=== PATIENT | male | born 1960 | race Caucasian/White ===

== ENCOUNTER → 2025-04-07 07:08 | Outpatient (REF) | payer MEDICARE, OTHER, SELFPAY | LOC: HWRCS 07:08 | PROVIDERS: ATTENDING PHYSICIAN Internal Medicine Cardiovascular Disease | DX: E78.5 Hyperlipidemia, unspecified (principal); E11.42 Type 2 diabetes mellitus with diabetic polyneuropathy; I10 Essential (primary) hypertension; E11.21 Type 2 diabetes mellitus with diabetic nephropathy; R06.09 Other forms of dyspnea | CPT/HCPCS: 78452; 93017; A9500; J2785 ==

== ENCOUNTER → 2025-04-26 09:39 | Outpatient (REF) | payer MEDICARE, OTHER, SELFPAY ==
[2025-04-26 10:44] LABS: Hematocrit 44.5 % (39.0-52.0); Hemoglobin 14.8 g/dL (13.0-18.0); Mean Corp Hgb Conc. 33.3 g/dL (33.0-37.0); Mean Corpuscular Volume 88.5 fL (80.0-94.0); Nucleated Red Blood Cells % 0 % (-); Platelet Count 213 10^3/uL (130-400); Red Cell Dist. Width 13.8 % (11.5-14.5)
[2025-04-26 11:37] LABS: Glycohemoglobin (HgbA1c) 7.5 % (4.0-5.9)
[2025-04-26 11:53] LABS: ALT (SGPT) 18 U/L (0-50); AST (SGOT) 21 U/L (17-59); Albumin 4.8 g/dl (3.5-5.0); Alkaline Phosphatase 77 U/L (38-126); Blood Urea Nitrogen 11 mg/dl (9-20); Calcium 9.7 mg/dl (8.4-10.2); Carbon Dioxide 27 mmol/L (22-30); Chloride 102 mmol/L (98-107); Glucose 169 mg/dl (70-99); HDL Cholesterol 39 mg/dl; LDL Cholesterol, Calculated 110 mg/dl; Potassium 5.0 mmol/L (3.5-5.1); Sodium 139 mmol/L (135-145); Total Protein 7.8 g/dl (6.3-8.2); Very Low Density Lipoprotein 31 mg/dl (0-30); eGFR > 60.00
== END ==
LOC: SDSPAT 09:39
PROVIDERS: ATTENDING PHYSICIAN Internal Medicine Cardiovascular Disease; FAMILY PHYSICIAN Internal Medicine Interventional Cardiology
DX: E11.21 Type 2 diabetes mellitus with diabetic nephropathy (principal); E11.42 Type 2 diabetes mellitus with diabetic polyneuropathy; E78.5 Hyperlipidemia, unspecified; I10 Essential (primary) hypertension; I42.9 Cardiomyopathy, unspecified
CPT/HCPCS: 36415; 71046; 80053; 80061; 83036; 85025

== ENCOUNTER 2025-04-28 07:14 | Day surgery (SDC) | payer MEDICARE, OTHER, SELFPAY ==
[2025-04-28] VITALS (14 sets, daily range): BP systolic 124–147; BP diastolic 70–114; BMI 31.2
[2025-04-28 08:13] LABS: Glucose - Point of Care 191 mg/dl (70-99)
[2025-04-28] MEDS: NSS 271 ML IV (08:26)
[2025-04-28] MEDS: NSS 1000 IV (09:40)
--- NOTE | 2025-04-28 09:41 | ITS.CL.CATH ---
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
Cardiac Catheterization
Procedure Report:
LEFT HEART CATHETERIZATION
Date of Procedure: April 28, 2025
Procedures performed:
1: Coronary angiography
2: Left ventriculography
Primary Care Physician: None
Primary Airplane Technician: Dr. Bernard Lezama
INDICATION: The patient is a 64-year-old man with a past medical history significant for diabetes, hypertension, and ongoing heavy smoking who presents for diagnostic cardiac catheterization after a high risk stress test and echocardiogram showed an
LV ejection fraction of 40 to 45%. He has no typical angina.
ACCESS: The patient was prepped and draped in usual sterile fashion. A 6 Scottish sheath was placed in the right radial artery using the Seldinger over the wire technique.
HEMODYNAMIC FINDINGS (mmHg):
LV(s/d,EDP): 119/12, 20
Ao(s/d,m): 119/70, 92
ANGIOGRAPHIC FINDINGS:
Single-plane Left Ventriculography in BRAN Projection: Large inferobasal aneurysm with akinesis. Moderate diaphragmatic and mild inferoapical hypokinesis. Preserved anterobasal wall motion. Mild anterolateral and apical hypokinesis. Overall
severe LV systolic dysfunction with a visually estimated ejection fraction of 30%. No significant mitral regurgitation.
Coronary Angiography:
Dominance: Right
Left Main: Normal
Left Anterior Descending: The left anterior descending artery is a small caliber vessel that is calcified and has moderate diffuse disease without clear focal obstructive disease. The LAD gives rise to 4 small caliber diagonal branches that are
patent with luminal irregularities and normal flow. There is apical collaterals to the distal right PDA noted.
Left Circumflex: The left circumflex is a medium caliber nondominant system that gives rise to a bifurcating first obtuse marginal branch and much larger second obtuse marginal branch. The proximal circumflex is widely patent and the 6 large second
obtuse marginal branch has only mild luminal irregularities as it courses the lateral apex. OM1 has 2 small to medium caliber branches. The more medial branch has diffuse moderate small vessel disease with multiple areas of 50 to 60% stenosis and
normal flow. The smaller lateral branch has moderate small vessel disease with normal flow.
Right Coronary: Mid total occlusion. No right to right collaterals. Very faint apical left to right collaterals.
Fluoroscopy Time (min): 2
Radiation Dose (mGy): 339
DAP (Gy.cm2): 31
Closure device: None. A TR band was applied for hemostasis at the right wrist.
Complications: None.
ASSESSMENT:
1: Coronary artery disease with an occluded right and large prior inferior [place]. There is diffuse disease in the LAD but I do not think there are any surgical or percutaneous targets. Given the diffuse small vessel nature of his disease I favor
medical therapy with smoking cessation being the most important intervention to reduce his morbidity and mortality from future events.
2: Ischemic cardiomyopathy with prior inferior infarct with aneurysm as described above. Consider ICD placement for primary prevention. May want to more objectively assess EF with cardiac MR if helpful.
CONCLUSIONS and RECOMMENDATIONS:
1: Medical therapy for coronary artery disease, diabetes and a ischemic cardiomyopathy in the setting of diabetes and ongoing smoking. Start high dose high intensity statin therapy.
2: Smoking cessation is the most critical intervention reduces morbidity mortality from future vascular events.
3: Close clinical follow-up with cardiology Dr. Lezama. The patient is encouraged to get a family physician for follow-up [facility].
Marley Davis M.D.
== END 2025-04-28 12:05 | disposition home or self-care (01) ==
LOC: CATH 07:14
PROVIDERS: ATTENDING PHYSICIAN Internal Medicine Cardiovascular Disease
DX: I25.10 Atherosclerotic heart disease of native coronary artery without angina pectoris (principal); F17.200 Nicotine dependence, unspecified, uncomplicated; I11.9 Hypertensive heart disease without heart failure; I25.2 Old myocardial infarction; I25.5 Ischemic cardiomyopathy; F17.210 Nicotine dependence, cigarettes, uncomplicated; E11.40 Type 2 diabetes mellitus with diabetic neuropathy, unspecified
CPT/HCPCS: 82962; 93458; C1769; C1894; Q9967